=== PATIENT | female | born 1975 | race Caucasian/White ===

== ENCOUNTER 2021-10-17 18:03 | Emergency (ER) | payer BC ==
[2021-10-17] MEDS ORDERED: traMADol 50 MG Tab PO ONE (18:04)
--- NOTE | 2021-10-17 19:04 | EDM.PDOC ---
ED HPI GENERAL MEDICAL PROBLEM - General Chief Complaint: Lower Extremity Injury/Pain Stated Complaint: BROKEN ANKLE Time Seen by Provider: 10/17/21 19:01 Source of Information: Reports: Patient History Limitations: Reports: No Limitations - History of Present Illness INITIAL COMMENTS - FREE TEXT/NARRATIVE: Chrissy complains of injury to the right ankle at home. Twisted the ankle while trying to get home. Pain is severe,associated with swelling. - Related Data Allergies Allergy/AdvReac Type Severity Reaction Status Date / Time No Known Allergies Allergy Verified 10/17/21 18:36 Review of Systems - Review of Systems Review Of Systems: Comprehensive ROS is negative, except as noted in HPI. ED EXAM, GENERAL - Physical Exam Exam: See Below Exam Limited By: No Limitations General Appearance: Alert, WD/WN, No Apparent Distress Ears: Normal External Exam Ear Exam: Bilateral Ear: Auricle Normal, Canal Normal, TM normal Nose: Normal Inspection Throat/Mouth: Normal Inspection Head: Atraumatic, Normocephalic Neck: Normal Inspection Cardiovascular: Normal Peripheral Pulses Extremities: Joint Swelling, Limited Range of Motion Course - Vital Signs Last Recorded V/S: Last Vital Signs Temp 99.2 F 10/17/21 18:03 Pulse 95 10/17/21 18:03 Resp 20 10/17/21 18:03 BP 146/95 H 10/17/21 18:03 Pulse Ox 95 10/17/21 18:03 - Orders/Labs/Meds Orders: Active Orders 24 hr Category Date Time Status Ankle Min 3V Rt [CR] Stat Exams 10/17/21 18:28 Taken Departure - Departure Time of Disposition: 19:03 Disposition: Home, Self-Care 01 Condition: Good Clinical Impression: Ankle sprain - Discharge Information Referrals: Nafisa Leonard MD [Primary Care Provider] - Sepsis Event Note (ED) - Evaluation Sepsis Screening Result: No Definite Risk - Focused Exam Vital Signs: Vital Signs Temp Pulse Resp BP Pulse Ox 10/17/21 18:03 99.2 F 95 20 146/95 H 95 - Problem List & Annotations (1) Ankle sprain SNOMED Code(s): 07462669 Code(s): S93.409A - SPRAIN OF UNSP LIGAMENT OF UNSPECIFIED ANKLE, INIT ENCNTR Status: Acute Current Visit: Yes Qualifiers: Encounter type: initial encounter Laterality: right - Problem List Review Problem List Initiated/Reviewed/Updated: Yes - My Orders Last 24 Hours: My Active Orders 10/17/21 18:28 Ankle Min 3V Rt [CR] Stat - Assessment/Plan Last 24 Hours: My Active Orders 10/17/21 18:28 Ankle Min 3V Rt [CR] Stat Plan: [email or web address]
--- NOTE | 2021-10-19 10:13 | CR ---
INDICATION: Right ankle pain. RIGHT ANKLE: Three views of the right ankle were obtained 10/17/21 - no comparison. Fairly marked soft tissue swelling is noted overlying the lateral malleolus. The ankle mortise appears to be intact with symmetrical joint space and intact talar dome. No acute fracture or dislocation was seen. Small posterior calcaneal spur is noted. If symptoms persist - if occult fracture site is suspected clinically, reexamination in 10 to 14 days may be helpful. MTDD
== END 2021-10-17 19:35 | disposition home or self-care (01) ==
LOC: FB.ED 18:03
DX: S93.401A Sprain of unspecified ligament of right ankle, initial encounter (principal); X50.1XXA Overexertion from prolonged static or awkward postures, initial encounter; Y92.009 Unspecified place in unspecified non-institutional (private) residence as the place of occurrence of the external cause
CPT/HCPCS: 73610-RT; 99283-25; A9270-GY